=== PATIENT | female | born 1995 | race Caucasian/White ===

== ENCOUNTER 2023-10-16 20:05 | Outpatient (CLI) | payer SELFPAY | END 2023-10-16 23:59 | disposition short-term general hospital (02) | LOC: EMS 20:05 | DX: R55 Syncope and collapse (principal); M54.2 Cervicalgia; S01.01XA Laceration without foreign body of scalp, initial encounter; W18.39XA Other fall on same level, initial encounter; Y92.89 Other specified places as the place of occurrence of the external cause | CPT/HCPCS: A0425; A0427 ==